=== PATIENT | female | born 1980 | race Caucasian/White ===

== ENCOUNTER 2022-12-01 13:00 | Emergency (ER) | payer OTHER ==
[~2022-12-01] VITALS: Ht 167.6 cm; Wt 80.7 kg
[2022-12-01] MEDS ORDERED: Diflucan150 MG PO (15:19)
[2022-12-01] MEDS ORDERED: Ketoconazole15 GM TOP (15:19)
== END 2022-12-01 15:50 | disposition home or self-care (01) ==
LOC: ER 13:00
DX: B35.4 Tinea corporis (principal); E11.9 Type 2 diabetes mellitus without complications; F17.200 Nicotine dependence, unspecified, uncomplicated; Z88.1 Allergy status to other antibiotic agents
CPT/HCPCS: 99283

== ENCOUNTER 2023-05-20 11:38 | Emergency (ER) | payer OTHER ==
[~2023-05-20] VITALS: Ht 170.2 cm; Wt 81.7 kg
[~2023-05-20 11:38] MED LIST: Diflucan150 MG PO; Ketoconazole15 GM TOP
[2023-05-20 12:03] VITALS: BP 150/94
[2023-05-20] MEDS ORDERED: OCUFLOX511 RIGHTEYE (12:59)
== END 2023-05-20 13:44 | disposition home or self-care (01) ==
LOC: ER 11:38
DX: S05.01XA Injury of conjunctiva and corneal abrasion without foreign body, right eye, initial encounter (principal); E11.9 Type 2 diabetes mellitus without complications; F17.200 Nicotine dependence, unspecified, uncomplicated; Z88.1 Allergy status to other antibiotic agents; W54.8XXA Other contact with dog, initial encounter
CPT/HCPCS: 96372; 99282-25; A9270; J1885